=== PATIENT | female | born 2000 | race Caucasian/White ===

== ENCOUNTER 2019-06-10 13:46 | Emergency (ER) | payer SELFPAY ==
[~2019-06-10] VITALS: Ht 167.6 cm; Wt 63.6 kg
[2019-06-10 13:52] VITALS: Ht 167.6 cm; Wt 63.6 kg
[2019-06-10 15:28] LABS: APPEARANCE CLEAR (CLEAR); BILIRUBIN NEGATIVE (NEGATIVE); COLOR YELLOW (YELLOW); GLUCOSE NEGATIVE (NEGATIVE); KETONE SMALL mg/dL (NEGATIVE); NITRITE NEGATIVE (NEGATIVE); PROTEIN NEGATIVE (NEGATIVE); UROBILINOGEN NORMAL (NORMAL)
[2019-06-10 15:30] LABS: HCG URINE NEGATIVE (NEGATIVE)
[2019-06-10] MEDS ORDERED: VIBRAMYCIN 100100 MG PO (16:34)
[2019-06-10 16:48] VITALS: BP 124/84
== END 2019-06-10 16:50 | disposition home or self-care (01) ==
LOC: D.ER 13:46
PROVIDERS: Emergency Medicine
DX: R50.9 Fever, unspecified (principal); R05 Cough; R30.0 Dysuria; M79.7 Fibromyalgia